=== PATIENT | male | born 1940 | race Two or more races ===

== ENCOUNTER 2020-12-19 18:27 | Emergency (ER) | payer OTHER ==
[~2020-12-19] VITALS: Ht 167.6 cm; Wt 59.0 kg
== END 2020-12-20 00:55 | disposition home or self-care (01) ==
LOC: ER 18:27
DX: I63.89 Other cerebral infarction (principal); H02.401 Unspecified ptosis of right eyelid; H11.89 Other specified disorders of conjunctiva

== ENCOUNTER 2021-10-06 16:28 | Inpatient (IN) | payer OTHER ==
[~2021-10-06] VITALS: Ht 170.2 cm; Wt 38.6 kg
[2021-10-06] MEDS ORDERED: VITACEL TABLET1 EACH PO (16:59)
[2021-10-06] MEDS ORDERED: IRBESARTAN-HCT1 EAC1 PO (17:00)
[2021-10-06] MEDS ORDERED: STOOL SOFTENER240 MG (17:00)
[2021-10-06] MEDS ORDERED: FINASTERIDE5 MG PO (17:00)
[2021-10-06] MEDS ORDERED: LEVOTHYROXINE25 MC1 PO (17:00)
[2021-10-06] MEDS ORDERED: CARBIDOPA-LEVO1 EA10 PO (17:00)
[2021-10-06] MEDS ORDERED: PANTOPRAZOLE SO40 MG PO (17:00)
[2021-10-06] MEDS ORDERED: SIMVASTATIN20 MG PO (17:00)
[2021-10-06] MEDS ORDERED: ST. JOSEPH ASPI81 M2 PO (17:01)
--- NOTE | 2021-10-06 17:01 | NUR ---
SE RECIBE PACIENTE ALERTA, ACOMPANADO DE FAMILIAR REFIERE PTE TIENE URCERA SACRAL INFLAMADA E INFECTADA CON MAL OLOR. REFIERE NO QUIERE COMER, NO PARARSE SE ESTIMAN S/V SE UBICA EN AREA DE OBSERVACION.
--- NOTE | 2021-10-06 17:56 | NUR ---
MRS. MATTHEWS EDUCA A PTE SOBRE TX MEDICO, SE DESIREE MUESTRAS DE LABORATORIO UTLIZANDO MEDIDAS ASEPTICAS. SE COLOCA H/L EL CUAL SE ENCUENTRA PATENTE. SE COLOCA IV FLUIDS A PTE Y SE NOTIFICA ESTUDIO DE RX PENDIENTE A REALIZAR. SE NOTIFICA CONSULTA CON PERSONAL DE TRABAJO SOCIAL POR POBRE APOYO FAMILIAR.
--- NOTE | 2021-10-06 23:20 | NUR ---
SE RECIBE PACIENTE EN CHANDANA CON MEDIDAS DE SEGURIDAD, LUCE ALERTA CONSCIENTE Y ORIENTADO SOLO EN PERSONA. BUEN PATRON RESPIRATORIO. PERMANECE SOLO SIN COMPANIA DE FAMILIAR. IV. PATENTE, AREA CHETAN DE EDEMA Y ENROJECIMIENTO. PTE CON ULCERA SACRAL CONSULTADO CON MEDICINA INTERNA Y TRABAJO SOCIAL PTE ENCAMADO.
[2021-10-17] MEDS ORDERED: VITAMIN B-121000 MCG (16:25)
[2021-10-17] MEDS ORDERED: MAGNESIUM OXID500 MG (16:25)
[2021-10-17] MEDS ORDERED: MELATONIN3 MG (16:25)
[2021-10-17] MEDS ORDERED: B-121000 MC2 (16:26)
== END 2021-11-01 16:00 | disposition expired | DRG 570 ==
LOC: ER 16:28 → ICU-2 23:53 → ICU 10-11 04:45 → MEDI 10-14 16:58
PROVIDERS: ADMIT Internal Medicine; ATTEND Internal Medicine
PROC: 0JB70ZZ Excision of Back Subcutaneous Tissue and Fascia, Open Approach (ICD-10-PCS; principal; 2021-10-10)
PROC: CP1Z1ZZ Planar Nuclear Medicine Imaging of Musculoskeletal System, All using Technetium 99m (Tc-99m) (ICD-10-PCS; 2021-10-10)
PROC: 30233N1 Transfusion of Nonautologous Red Blood Cells into Peripheral Vein, Percutaneous Approach (ICD-10-PCS; 2021-10-10)
PROC: 8E0ZXY6 Isolation (ICD-10-PCS; 2021-10-11)
PROC: 4A033R1 Measurement of Arterial Saturation, Peripheral, Percutaneous Approach (ICD-10-PCS; 2021-10-13)
PROC: 3E0F7GC Introduction of Other Therapeutic Substance into Respiratory Tract, Via Natural or Artificial Opening (ICD-10-PCS; 2021-10-13)
PROC: 0QB10ZX Excision of Sacrum, Open Approach, Diagnostic (ICD-10-PCS; 2021-10-14)
PROC: CP1ZYZZ Planar Nuclear Medicine Imaging of Musculoskeletal System, All using Other Radionuclide (ICD-10-PCS; 2021-10-14)
PROC: 0JB70ZZ Excision of Back Subcutaneous Tissue and Fascia, Open Approach (ICD-10-PCS; 2021-10-19)
PROC: 0JB70ZZ Excision of Back Subcutaneous Tissue and Fascia, Open Approach (ICD-10-PCS; 2021-10-26)
DX: L89.153 Pressure ulcer of sacral region, stage 3 (principal); J69.0 Pneumonitis due to inhalation of food and vomit; M46.28 Osteomyelitis of vertebra, sacral and sacrococcygeal region; R65.10 Systemic inflammatory response syndrome (SIRS) of non-infectious origin without acute organ dysfunction; D62 Acute posthemorrhagic anemia; L89.154 Pressure ulcer of sacral region, stage 4; Z74.01 Bed confinement status; F03.90 Unspecified dementia, unspecified severity, without behavioral disturbance, psychotic disturbance, mood disturbance, and anxiety; B95.2 Enterococcus as the cause of diseases classified elsewhere; B95.61 Methicillin susceptible Staphylococcus aureus infection as the cause of diseases classified elsewhere; B96.89 Other specified bacterial agents as the cause of diseases classified elsewhere; B96.5 Pseudomonas (aeruginosa) (mallei) (pseudomallei) as the cause of diseases classified elsewhere; E88.09 Other disorders of plasma-protein metabolism, not elsewhere classified; E87.6 Hypokalemia; E83.39 Other disorders of phosphorus metabolism; E78.49 Other hyperlipidemia; G20 Parkinson's disease